=== PATIENT | female | born 1985 | race Caucasian/White ===

== ENCOUNTER 2020-07-09 14:57 | Emergency (ER) | payer MEDICARE, MEDICAID ==
[~2020-07-09] VITALS: Ht 149.9 cm; Wt 82.0 kg
[~2020-07-09 14:57] MED LIST: ALBU2.5V11 NEB; ALEN70TA3 PO; AMOX1TAB64 PO; CALC-545 PO; CHOL10003 PO; HYDR-3240 PO; LEVO5TAB29 PO; LORA-446 PO; MEDR150D3 SQ; MELA5TAB14 PO; TIZA2TAB4 PO; TRAZ-175 PO
[2020-07-09 14:59] VITALS: BP 134/94
--- NOTE | 2020-07-09 16:39 | NUR ---
Patient/Caregiver given discharge instructions and they have confirmed that they understand the instructions. Patient ambulatory with steady gait.
== END 2020-07-09 16:42 | disposition home or self-care (01) ==
LOC: ED 16:37
DX: S01.511A Laceration without foreign body of lip, initial encounter (principal); X58.XXXA Exposure to other specified factors, initial encounter; Y93.89 Activity, other specified; Y92.89 Other specified places as the place of occurrence of the external cause; Y99.8 Other external cause status
CPT/HCPCS: 99281